=== PATIENT | female | born 1990 | race Hispanic/Latino ===

== ENCOUNTER 2017-06-29 08:07 | Emergency (ER) | payer OTHER ==
[~2017-06-29] VITALS: Ht 154.9 cm; Wt 83.9 kg
[~2017-06-29 08:07] MED LIST: DAYPRO600 MG PO; ELIMITE60 GM TOP; LEVSIN-SL0.125 MG SL; LORTAB 5-500 T1 EACH PO; PREDNISONE20 MG PO; PRENATAL TABLE1 EACH PO
[2017-06-29] MEDS ORDERED: NAPROSYN500 MG PO (15:00)
[2017-06-29] MEDS ORDERED: ROBAXIN-750750 MG PO (15:00)
[2017-06-29] MEDS ORDERED: LIDODERM1 EACH TD (15:02)
== END 2017-06-29 15:53 | disposition home or self-care (01) ==
LOC: ED 08:07
DX: R10.9 Unspecified abdominal pain (principal); D72.829 Elevated white blood cell count, unspecified; R11.0 Nausea
CPT/HCPCS: 71020; 74177; 80053; 81001; 83605; 83690; 84703; 85025; 87088; 96361; 96374; 96375; 99284; J1170; J1885; J2060; J2405; J7030; Q9967

== ENCOUNTER 2023-03-24 08:21 | Emergency (ER) | payer OTHER ==
[~2023-03-24] VITALS: Ht 154.9 cm; Wt 83.9 kg
[~2023-03-24 08:21] MED LIST changes: +LIDODERM1 EACH TD; +NAPROSYN500 MG PO; +ROBAXIN-750750 MG PO
[2023-03-24] MEDS ORDERED: ADDERALL XR 2020 MG (08:37)
[2023-03-24] MEDS ORDERED: DEXTROAMP-AMPHE20 MG (08:37)
[2023-03-24] MEDS ORDERED: CYANOCOBAL1000 MCG/M (08:37)
[2023-03-24 08:43] LABS: BASOPHILS 0.5 % (0-2); EOSINOPHILS 0.7 % (0-6); HEMATOCRIT 41.3 % (35.0-50.0); HEMOGLOBIN 13.7 g/dL (12.0-18.0); LYMPHOCYTES 17.7 % (24-44); MCHC 33.1 g/dl (30-36); MCV 87.6 fl (81-99); MONOCYTES 5.8 % (0-12); NEUTROPHILS 75.3 % (39-80); PLATELET COUNT 285 K/uL (140-440); RBC 4.71 M/ul (4.3-5.7); RDW 13.4 (10.5-15.0)
[2023-03-24 08:57] LABS: ALBUMIN 3.6 g/dL (3.4-5.0); ALBUMIN/GLOBULIN RATIO 0.9 (1.1-2.4); BILIRUBIN, TOTAL 0.4 ng/dL (0.2-1.0); BUN/CREATININE RATIO 19.35 (6.0-28.6); CALCIUM 10.1 mg/dL (8.5-10.1); CREATININE, SERUM 0.62 mg/dL (0.55-1.02); PROTEIN, TOTAL 7.6 g/dL (6.4-8.2)
[2023-03-24 09:20] LABS: BILIRUBIN, URINE NEGATIVE (negative); BLOOD/HGB, URINE LARGE (Negative); KETONE, URINE NEGATIVE (Negative); LEUK ESTERASE, URINE NEGATIVE (negative); NITRITE, URINE NEGATIVE (negative)
[2023-03-24 09:27] LABS: EPITHELIAL CELLS, URINE SQUAMOUS 1+ /lpf (0-1+)
[2023-03-24 09:29] LABS: BACTERIA, URINE RARE /hpf (negative)
[2023-03-24 09:30] LABS: CASTS, URINE NONE SEEN \\lpf; COLLECTION TYPE, URINE CLEAN CATCH; CRYSTALS, URINE NONE SEEN (0-1+); RED BLOOD CELLS, URINE >50 /hpf (0-5); WHITE BLOOD CELLS, URINE 0-1 /HPF (0-5)
[2023-03-24 09:31] LABS: REFLEX CULTURE, URINE No (No)
[2023-03-24 13:03] VITALS: BP 138/88
== END 2023-03-24 13:05 | disposition short-term general hospital (02) ==
LOC: ED 08:21
PROVIDERS: Emergency Medicine
DX: N13.2 Hydronephrosis with renal and ureteral calculous obstruction (principal)
CPT/HCPCS: 36415; 74177; 80053; 81001; 83690; 84703; 85025; J1170; J1885; J2405; J3490; J7030; Q9967

== ENCOUNTER 2023-12-24 06:04 | Emergency (ER) | payer OTHER ==
[~2023-12-24] VITALS: Ht 154.9 cm; Wt 91.0 kg
[~2023-12-24 06:04] MED LIST changes: +ADDERALL XR 2020 MG; +CYANOCOBAL1000 MCG/M; +DEXTROAMP-AMPHE20 MG; +DICLOFENAC SODI75 MG PO; +LAMOTRIGINE25 MG PO; +METFORMIN HCL500 M1 PO
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
[2023-12-24] MEDS ORDERED: MULTIVITAMINS 10 ML,FOLIC ACID 1 MG,THIAMINE HCL 100 MG in SODIUM CHLORIDE 0.9% 1,000 ML IV ONE (06:30)
[2023-12-24 06:33] LABS: BASOPHILS 1.2 % (0-2); EOSINOPHILS 0.4 % (0-6); HEMATOCRIT 42.2 % (35.0-50.0); HEMOGLOBIN 14.2 g/dL (12.0-18.0); LYMPHOCYTES 34.7 % (24-44); MCH 29.8 (27-36); MCHC 33.6 g/dl (30-36); MCV 88.7 fl (81-99); MONOCYTES 6.8 % (0-12); NEUTROPHILS 56.9 % (39-80); PLATELET COUNT 290 K/uL (140-440); RBC 4.76 M/ul (4.3-5.7); RDW 12.9 (10.5-15.0)
[2023-12-24 06:47] LABS: ALBUMIN 3.6 g/dL (3.4-5.0); ALBUMIN/GLOBULIN RATIO 0.82 (1.1-2.4); ANION GAP 18.6 (7-21); BILIRUBIN, TOTAL 0.3 ng/dL (0.2-1.0); BUN/CREATININE RATIO 12.12 (6.0-28.6); CALCIUM 8.2 mg/dL (8.5-10.1); CREATININE, SERUM 0.66 mg/dL (0.55-1.02); POTASSIUM 3.6 mmol/L (3.5-5.1)
[2023-12-24 09:00] VITALS: BP 175/122
== END 2023-12-24 08:58 | disposition home or self-care (01) ==
LOC: ED 06:04
PROVIDERS: Internal Medicine
DX: M25.511 Pain in right shoulder (principal); F10.129 Alcohol abuse with intoxication, unspecified; M54.2 Cervicalgia; F90.9 Attention-deficit hyperactivity disorder, unspecified type; Y90.7 Blood alcohol level of 200-239 mg/100 ml; W01.0XXA Fall on same level from slipping, tripping and stumbling without subsequent striking against object, initial encounter; Z79.84 Long term (current) use of oral hypoglycemic drugs; Z79.1 Long term (current) use of non-steroidal anti-inflammatories (NSAID); Z79.899 Other long term (current) drug therapy
CPT/HCPCS: 36415; 70450; 72125; 73030; 80053; 84703; 85025; 96365; 99284-25; G0480; J3411; J7030

== ENCOUNTER 2024-12-15 12:06 | Emergency (ER) | payer OTHER ==
[~2024-12-15] VITALS: Ht 154.9 cm; Wt 92.4 kg
[2024-12-15] MEDS ORDERED: KETOROLAC TROMETHAMINE 15 MG/ML VIAL IV ONE ×2 (12:15→13:00)
[2024-12-15] MEDS ORDERED: ondansetron HCL 4 MG/2 ML VIAL IV PRN (12:15)
[2024-12-15 12:22] LABS: BASOPHILS 0.8 % (0-2); EOSINOPHILS 0.3 % (0-6); HEMATOCRIT 41.7 % (35.0-50.0); HEMOGLOBIN 14.7 g/dL (12.0-18.0); LYMPHOCYTES 20.4 % (24-44); MCH 30.6 (27-36); MCHC 35.3 g/dl (30-36); MCV 86.8 fl (81-99); MONOCYTES 7.6 % (0-12); NEUTROPHILS 70.9 % (39-80); PLATELET COUNT 305 K/uL (140-440)
[2024-12-15 12:39] LABS: ALBUMIN 3.4 g/dL (3.4-5.0); ALBUMIN/GLOBULIN RATIO 0.72 (1.1-2.4); ANION GAP 17.1 (7-21); BILIRUBIN, TOTAL 0.3 mg/dL (0.2-1.0); BUN/CREATININE RATIO 8.1 (6.0-28.6); CALCIUM 8.5 mg/dL (8.5-10.1); CREATININE, SERUM 0.74 mg/dL (0.55-1.02); POTASSIUM 3.1 mmol/L (3.5-5.1); PROTEIN, TOTAL 8.1 g/dL (6.4-8.2)
[2024-12-15] MEDS ORDERED: OFLOXACIN5 M1 OP (12:41)
[2024-12-15] MEDS ORDERED: SODIUM CHLORIDE 0.9% 1,000 ML IV PRN (13:00)
[2024-12-15] MEDS ORDERED: HYDROmorphone HCL 1 MG/ML SYR IV ONE ×2 (13:00→15:00)
[2024-12-15 13:57] LABS: BILIRUBIN, URINE NEGATIVE (negative); BLOOD/HGB, URINE LARGE (Negative); KETONE, URINE NEGATIVE (Negative); LEUK ESTERASE, URINE NEGATIVE (negative); NITRITE, URINE NEGATIVE (negative); PH, URINE 6.5 (5-7)
[2024-12-15 14:04] LABS: CRYSTALS, URINE NONE SEEN (0-1+); EPITHELIAL CELLS, URINE SQUAMOUS 1+ /lpf (0-1+); RED BLOOD CELLS, URINE 21-40 /hpf (0-5)
[2024-12-15 14:05] LABS: BACTERIA, URINE NONE SEEN /hpf (negative); CASTS, URINE NONE SEEN \\lpf; COLLECTION TYPE, URINE CLEAN CATCH; REFLEX CULTURE, URINE No (No)
[2024-12-15] MEDS ORDERED: HYDROCODON-ACE1 EAC8 PO (16:45)
[2024-12-15] MEDS ORDERED: ONDANSETRON HCL4 MG PO (16:45)
[2024-12-15] MEDS ORDERED: FLOMAX0.4 MG PO (16:45)
[2024-12-15] MEDS ORDERED: IBUPROFEN600 MG PO (16:45)
[2024-12-15 17:05] VITALS: BP 158/100
== END 2024-12-15 17:07 | disposition home or self-care (01) ==
LOC: ED 12:06
PROVIDERS: Emergency Medicine
DX: N13.2 Hydronephrosis with renal and ureteral calculous obstruction (principal); Z79.84 Long term (current) use of oral hypoglycemic drugs; Z79.899 Other long term (current) drug therapy
CPT/HCPCS: 36415; 74176; 80053; 81001; 84703; 85025; 96361; 96374; 96375; 96376; 99284-25; J1171; J1885; J2405; J7030

== ENCOUNTER 2024-12-22 07:35 | Day surgery (SDC) | payer OTHER ==
[~2024-12-22] VITALS: Ht 154.9 cm; Wt 93.3 kg
[~2024-12-22 07:35] MED LIST changes: +BRINTELLIX10 MG PO; +CEFAZOLIN SODIUM 2 GM/20 ML SYR IV SCH; +FLOMAX0.4 MG PO; +HYDROCODON-ACE1 EAC8 PO; +IBLOOD GLUCOSE TEST STRIP 1 EA TEST VI PRN; +IBU600 MG PO; +IBUPROFEN600 MG PO; +LACTATED RINGER'S 1,000 ML IV SCH; +LIDOCAINE HCL 1% 5 ML SDV INJ ONE; +OFLOXACIN5 M1 OP; +ONDANSETRON HCL4 MG PO
[2024-12-22] MEDS ORDERED: PERCOCET 5-3251 EACH (07:55)
[2024-12-22 08:10] VITALS: BP 179/99
[2024-12-22 08:22] LABS: ALBUMIN/GLOBULIN RATIO 0.7 (1.1-2.4); ANION GAP 12.1 (7-21); BILIRUBIN, TOTAL 0.4 mg/dL (0.2-1.0); BUN/CREATININE RATIO 13.33 (6.0-28.6); CALCIUM 8.8 mg/dL (8.5-10.1); CREATININE, SERUM 0.75 mg/dL (0.55-1.02); POTASSIUM 3.1 mmol/L (3.5-5.1); PROTEIN, TOTAL 7.3 g/dL (6.4-8.2)
[2024-12-22] MEDS ORDERED: POTASSIUM CHLORIDE 40 MEQ,LIDOCAINE HCL 1% 40 MG in DEXTROSE 5% 250 ML IV ONE (08:45)
[2024-12-22] MEDS ORDERED: LABETALOL HCL 20 MG/4 ML VIAL IV ONE (09:00)
[2024-12-22] MEDS ORDERED: KETOROLAC TROMETHAMINE 30 MG/ML VIAL IV ONE (09:00)
[2024-12-22] MEDS ORDERED: iopamidoL 30 ML VIAL ONE (09:30)
[2024-12-22] MEDS ORDERED: fentaNYL citrate 100 MCG/2 ML VIAL ONE (09:31)
[2024-12-22] MEDS ORDERED: ACETAMINOPHEN 1,000 MG/100 ML VIAL ONE (09:31)
[2024-12-22] MEDS ORDERED: ondansetron HCL 4 MG/2 ML VIAL ONE (09:31)
[2024-12-22] MEDS ORDERED: DEXAMETHASONE SOD PHOS 4 MG/ML VIAL ONE (09:31)
[2024-12-22] MEDS ORDERED: propofoL 200 MG/20 ML VIAL ONE (09:31)
[2024-12-22] MEDS ORDERED: LIDOCAINE HCL 2% 5 ML SDV ONE (09:31)
[2024-12-22] MEDS ORDERED: MIDAZOLAM HCL 2 MG/2 ML VIAL ONE (09:32)
[2024-12-22] MEDS ORDERED: SEVOFLURANE 250 ML BTL INH ONE (09:42)
[2024-12-22] MEDS ORDERED: PHENAZOPYRIDINE HCL 100 MG TAB PO ONE (09:45)
[2024-12-22] MEDS ORDERED: KETOROLAC TROMETHAMINE 15 MG/ML VIAL IV PRN (09:45)
[2024-12-22] MEDS ORDERED: OXYCODONE/APAP 5/325 TAB PO PRN (09:45)
[2024-12-22] MEDS ORDERED: ondansetron HCL 4 MG/2 ML VIAL IV PRN ×2 (09:45→10:15)
[2024-12-22] MEDS ORDERED: HYDROmorphone HCL 1 MG/ML SYR IV PRN ×2 (09:45→10:15)
[2024-12-22] MEDS ORDERED: IBLOOD GLUCOSE TEST STRIP 1 EA TEST VI PRN (10:15)
[2024-12-22] MEDS ORDERED: PROCHLORPERAZINE EDISYLATE 10 MG/2 ML VIAL IV PRN (10:15)
[2024-12-22] MEDS ORDERED: fentaNYL citrate 50 MCG/ML SDV IV PRN (10:15)
[2024-12-22] MEDS ORDERED: droPERidol 5 MG/2 ML VIAL IV PRN (10:15)
[2024-12-22] MEDS ORDERED: NALOXONE HCL 0.4 MG SYR IV PRN (10:15)
[2024-12-22 12:00] VITALS: BP 172/108
--- NOTE | 2024-12-22 12:19 | NUR ---
1155: PATIENT BACK IN DAY SURGERY ROOM FROM PACU. VS CHECKED. RATES PAIN 01/11. IV SITE WNL. PATIENT TOLERATING SIPS OF WATER. GIVEN CRACKERS TO EAT. SCDs ON. FAMILY IN ROOM WITH PATIENT. 1210: PATIENT TOLERATED CRACKERS. PATIENT MEDICATED FOR PAIN WITH 2 TABS OF PERCOCET. LUNCH ORDERED FOR PATIENT. FAMILY AT BEDSIDE. CALL LIGHT WITHIN REACH.
--- NOTE | 2024-12-22 12:21 | NUR ---
12/22/24 1221 Diane Manning 1105 PT ARRIVED IN PACU SLEEPY AND C/O L FLANK PAIN. 1114 DILAUDID 0.5MG GIVEN IV. 1120 SNORING. REU. 1127 C/O FLANK PAIN 6/10. DILAUDID 0.5MG GIVEN IV. 1140 SNORING. REU. 1150 PAIN DOWN TO 5/10. SIPPING ON WATER. 1155 TO DS. REPORT GIVEN TO ECTOR.
--- NOTE | 2024-12-22 12:41 | NUR ---
CHECKED PATIENT. PATIENT EATING LUNCH. NO CHANGES IN PAIN LEVEL YET. NO NEEDS AT THIS TIME. CALL LIGHT WITHIN REACH. FAMILY MEMBERS IN ROOM WITH PATIENT.
[2024-12-22 13:00] VITALS: BP 174/106
--- NOTE | 2024-12-22 13:05 | NUR ---
1258: PATIENT ASSISTED OOB AND TO BATHROOM. GAIT STEADY. VOID WITHOUT DIFFICULTY. URINE RED FROM BLOOD. GAIT STEADY BACK TO BED. VS CHECKED. IV POTASSIUM INFUSION CONTINUES. PATIENT TOLERATED LUNCH. RATES PAIN 6/10 STILL. STATES NO IMPROVEMENT IN PAIN. CALL LIGHT WITHIN REACH. FAMILY AT BEDSIDE.
--- NOTE | 2024-12-22 13:24 | NUR ---
LATE ENTRY 1200: IV IN LEFT FOREARM, NOT LEFT HAND. IV SITE WNL.
--- NOTE | 2024-12-22 13:25 | NUR ---
PATIENT MEDICATED FOR 6/10 PAIN WITH IV DILAUDID. CALL LIGHT WITHIN REACH. FAMILY AT BEDSIDE.
[2024-12-22 14:03] VITALS: BP 160/101
--- NOTE | 2024-12-22 14:09 | NUR ---
1405: VS CHECKED. PATIENT RATES PAIN 4/10. STATES READY TO GO HOME. IV SITE IN LEFT FOREARM WNL. IV SALINE LOCKED. PATIENT GETTING DRESSED WITH ASSISTANCE FROM FAMILY.
--- NOTE | 2024-12-22 14:37 | NUR ---
1415: PATIENT DRESSED. DISCHARGE INSTRUCTIONS GIVEN TO PATIENT AND FAMILY. 1425: LEFT FOREARM IV DC'D WNL. TIP INTACT. DRESSING APPLIED. 1430: PATIENT DISCHARGED TO HOME WITH FAMILY VIA WHEELCHAIR.
[2024-12-25 20:50] LABS: CALCULI MASS 74 mg (())
== END 2024-12-22 14:30 | disposition home or self-care (01) ==
LOC: OPS 07:35 → DS 07:35 → OPS 09:00
PROVIDERS: ATTEND Urology
PROC: 0TC78ZZ Extirpation of Matter from Left Ureter, Via Natural or Artificial Opening Endoscopic (ICD-10-PCS; principal; 2024-12-22 09:00)
PROC: 0T778DZ Dilation of Left Ureter with Intraluminal Device, Via Natural or Artificial Opening Endoscopic (ICD-10-PCS; 2024-12-22 09:00)
DX: N20.1 Calculus of ureter (principal); Z79.899 Other long term (current) drug therapy; Z87.891 Personal history of nicotine dependence
CPT/HCPCS: 00910; 36415; 74420; 80053; 82365; C1769; C2617; J0131; J0690; J1100; J1171; J1885; J2003; J2250; J2405; J2704; J3010; J3480; J3490; J7060; J7121; Q9967